=== PATIENT | male | born 1975 | race Caucasian/White ===

== ENCOUNTER → 2017-11-13 | Outpatient (CLI) | payer OTHER ==
[~2017-11-13] MED LIST: MAXZIDE 75/501 EACH PO; TOPROL XL50 MG PO
== END | disposition home or self-care (01) ==
LOC: CDC 15:25
DX: Z01.810 Encounter for preprocedural cardiovascular examination (principal); S83.241D Other tear of medial meniscus, current injury, right knee, subsequent encounter
CPT/HCPCS: 93000

== ENCOUNTER 2017-11-20 10:00 | Day surgery (SDC) | payer OTHER ==
[~2017-11-20] VITALS: Ht 182.9 cm; Wt 169.0 kg
[2017-11-20] MEDS ORDERED: TYLENOL EXTRA500 MG PO (10:36)
[2017-11-20] MEDS ORDERED: ALEVE220 MG PO (10:37)
[2017-11-20 10:56] VITALS: BP 120/70
[2017-11-20 15:05] VITALS: BP 135/85
[2017-11-20 16:15] VITALS: BP 115/66
== END 2017-11-20 16:15 | disposition home or self-care (01) ==
LOC: SDC 10:00
DX: S83.241A Other tear of medial meniscus, current injury, right knee, initial encounter (principal); W22.09XA Striking against other stationary object, initial encounter; Y93.89 Activity, other specified; Y92.511 Restaurant or cafe as the place of occurrence of the external cause; Y99.0 Civilian activity done for income or pay; M94.261 Chondromalacia, right knee; M23.41 Loose body in knee, right knee; I10 Essential (primary) hypertension; G47.30 Sleep apnea, unspecified; E66.9 Obesity, unspecified; Z68.43 Body mass index [BMI] 50.0-59.9, adult; F17.210 Nicotine dependence, cigarettes, uncomplicated; Z82.49 Family history of ischemic heart disease and other diseases of the circulatory system; Z91.030 Bee allergy status
CPT/HCPCS: 94640; J0330; J0690; J1100; J1170; J1885; J2250; J2405; J2710; J2795; J3010; J7643